=== PATIENT | female | born 1995 | race Hispanic/Latino ===

== ENCOUNTER 2024-01-30 20:04 | Emergency (ER) | payer BC ==
[~2024-01-30] VITALS: Ht 162.6 cm; Wt 129.3 kg
--- NOTE | 2024-01-30 21:51 | HMCIMG ---
CERV SPINE 2-3VWS: 01/30/2024 8:38 PM FREELANCE TRANSLATOR CLINICAL HISTORY: pain COMPARISON: None TECHNIQUE: AP lateral and lateral images of the cervical spine were obtained. FINDINGS: The lung apices are clear. There is no fracture or destructive lesion. The vertebral bodies and posterior elements are remarkable for mild anterior bony osteophyte production.. The alignment, discs, and discovertebral relationships are normal. There is no evidence of instability on these views. IMPRESSION: There are no acute findings.
--- NOTE | 2024-01-30 22:07 | ERN ---
ED Note History of Present Illness Stated Complaint: SEVERE NECK PAIN ON LEFT SIDE Chief Complaint: Neck Pain Time Seen by MD: 20:35 Time Seen by Midlevel: 20:35 Dictation: The patient is a 28-year old female with history of diabetes who presents to the emergency department with complains of left side neck pain onset 2 days ago. Patient reports she slept wrong. Reports worst with movement. denies any injuries or fevers. Allergies: Coded Allergies: No Known Allergies (Unverified Allergy, Unknown, 01/30/24) Past Medical History Past Medical History: Diabetes-Type II, Hypertension Surgical History: None LMP: Jan 30, 2024 RN Note Reviewed/Agreed w/PFSH: Yes Review of System Dictation Constitutional: Negative for fever,chills, and weight loss Eyes: Negative for injury, pain,redness, and discharge ENT: Negative for injury,pain or swelling Cardiovascular: Negative for chest pain, palpitations, and edema Respiratory: Negative for shortness of breath, cough, and wheezing, Abdomen/GI: Negative for abdominal pain, nausea, vomiting, diarrhea, and constipation Back: Negative for injury and pain : Negative for injury, bleeding and discharge MS/Extremity: Positive for left-sided neck pain. Skin: Negative for rash, and discoloration Neuro: Negative for headache, weakness, numbness, tingling, and seizure Psych: Negative for suicide ideation, homicidal ideation, and hallucinations Initial Vital Sign VS Vital Signs Date Time Temp Pulse Resp B/P (MAP) Pulse Ox O2 Delivery O2 Flow Rate FiO2 01/30/24 21:01 98.2 88 20 135/98 98 Room Air Physical Exam Dictation Vital Signs reviewed General Appearance: Alert, oriented x 3, no acute distress, well developed, nourished. Head and Face: non-traumatic. Eyes: PERRL, pink conjunctivas, eyelid no trauma, anterior chamber with arcus senilis. Ears: Pinnas intact and no signs of trauma or erythema ear canals clear and no discharge TM no erythema Nose: No discharge, no bleeding. Oropharynx: Mouth normal, tongue pink. pharynx clear,no erythema, tonsils no exudates, no abscesses noted, mucous membrane moist Neck: Supple, tenderness with movement, no thyromegaly, no masses, no JVD, no bruits Breast:Deferred Chest:No tenderness, no crepitus, no paradoxical movement, no retractions Lungs:Clear, well-ventilated, symmetric, no rales, no wheezing, no rhonchi, no stridor, good breath sounds bilaterally Heart: Regular rate, regular rhythm, no murmur, no gallops Vascular: no peripheral edema, Abdomen: Soft, positive bowel sounds, nondistended, no guarding, nontender, no rebound, no masses no hepatomegaly, no splenomegaly, no Tatum's sign, no hernias. Rectal: Deferred Genital: Deferred Neurological: Normal speech, motor function intact, sensory function intact Musculoskeletal: Neck nontender, full range of motion, back nontender, full range of motion, Extremities: nontender, full range of motion Skin: Color pink, dry, no turgor, no rash, no lacerations, no abrasions, no contusions. Lymphatic: Deferred Results (Laboratory/Radiology) Laboratory/Radiology Laboratory Tests Test 01/30/24 21:09 Urine HCG, Qualitative NEGATIVE (NEGATIVE) REASON: pain ORDERING PHYSICIAN: NAVARRO MIRAMONTES BLANKET FOLDER PROCEDURE: CERV 2 3VW - CERV SPINE 2-3VWS CERV SPINE 2-3VWS: 01/30/2024 8:38 PM DIAMOND SETTER CLINICAL HISTORY: pain COMPARISON: None TECHNIQUE: AP lateral and lateral images of the cervical spine were obtained. FINDINGS: The lung apices are clear. There is no fracture or destructive lesion. The vertebral bodies and posterior elements are remarkable for mild anterior bony osteophyte production.. The alignment, discs, and discovertebral relationships are normal. There is no evidence of instability on these views. IMPRESSION: There are no acute findings. Labs Reviewed?: Yes ED Course ED Course Orders Procedure Category Date Status Time ,Urine Test LAB 01/30/24 Complete 20:38 Cerv Spine 2-3vws RAD 01/30/24 Resulted 20:38 Orphenadrine Citrate PHA 01/30/24 Complete (Norflex) 21:00 Triamcinolone Acet PHA 01/30/24 Complete 40mg/Ml 1ml (Kenalog 21:00 Current Medications Medications (Trade) Dose Ordered Sig/Nel Route PRN Reason Start Time Stop Time Status Last Admin Dose Admin Orphenadrine Citrate (Norflex) 60 mg ONCE ONCE IM 01/30/24 21:00 01/30/24 21:01 DC Triamcinolone Acetonide (Kenalog 40) 40 mg ONCE ONCE IM 01/30/24 21:00 01/30/24 21:01 DC Vital Signs Date Time Temp Pulse Resp B/P (MAP) Pulse Ox O2 Delivery O2 Flow Rate FiO2 01/30/24 21:01 98.2 88 20 135/98 98 Room Air Medical Decision Making MDM The patient is a 28-year old female with history of diabetes who presents to the emergency department with complains of left side neck pain onset 2 days ago. Patient reports she slept wrong. Reports worst with movement. denies any injuries or fevers. Differential diagnosis: C-spine fracture, muscle spasm, cervical strain Xray showed no acute fractures. Imagining goes with the patient who agrees to be discharged and follow up with PCP. Need for hospitalization: Patient does not meet criteria for hospitalization. There are no social concerns with this patient. DX & DISP Disposition: Discharge Departure Impression: Primary Impression: Neck muscle spasm Condition: Stable Scripts Cyclobenzaprine HCl (Flexeril) 10 Mg Tab 10 MG PO TID for muscle sstiffness, #14 TAB 0 Refills Prov: NAVARRO MIRAMONTES 01/30/24 Ibuprofen (Ibuprofen) 600 Mg Tablet 600 MG PO Q6H PRN for PAIN, #15 TAB Prov: NAVARRO MIRAMONTES 01/30/24 Additional Instructions: FOLLOW-UP WITH PRIMARY CARE PROVIDER IN 1 TO 2 DAYS. TAKE MEDICATIONS DIRECTED HERE IN THE EMERGENCY ROOM. OKAY TO CONTINUE HOME MEDICATIONS UNLESS OTHERWISE DISCUSSED DURING YOUR VISIT IN THE EMERGENCY ROOM TODAY. RETURN TO YOUR NEAREST EMERGENCY ROOM IF SYMPTOMS WORSEN OR IF THERE IS NO IMPROVEMENT. CALL 911 IF YOU NEED IMMEDIATE ASSISTANCE. TAKE TYLENOL OR MOTRIN [id number] NEEDED AND IF NO CONTRAINDICATIONS ARE PRESENT. INCREASE ORAL HYDRATION. A WOUND CULTURE OR URINE CULTURE WAS ORDERED HERE IN THE EMERGENCY ROOM DEPARTMENT PLEASE FOLLOW-UP WITH PRIMARY CARE PROVIDER AND ADVISE THEM TO GET REPEAT PORTS FROM OUR FACILITY. IF YOU HAD ANY CRIS WRAP/SPLINTS THAT WERE APPLIED HERE, PLEASE DO NOT REMOVE THEM UNTIL YOU SEE YOUR PRIMARY CARE OR SPECIALTY. Referrals: BEBETO STATON (PCP) Time of Disposition: 22:32 I have reviewed the case, and I agree with, Diagnosis and Plan NAVARRO MIRAMONTES Jan 30, 2024 22:07
[2024-01-30] MEDS: TRIAMCINOLONE ACETONIDE 40 MG/ML 1ML VIAL IM ONE (22:31)
[2024-01-30] MEDS: ORPHENADRINE 60MG/2ML IM ONE (22:31)
[2024-01-30] MEDS ORDERED: CYCL10TA16 PO (22:32)
[2024-01-30] MEDS ORDERED: IBUP-2070 PO (22:32)
[2024-01-30 23:23] VITALS: BP 140/87; PULSE 80; RESP 16; TEMP 98.9; O2SAT 98
== END 2024-01-30 23:50 | disposition home or self-care (01) ==
LOC: EDH 20:04
DX: M62.838 Other muscle spasm (principal); E11.9 Type 2 diabetes mellitus without complications; I10 Essential (primary) hypertension
CPT/HCPCS: 99284; 81025; 72040; 96372 ×2; J3301; J2360